=== PATIENT | female | born 1960 | race Caucasian/White ===

== ENCOUNTER 2017-06-24 14:10 | Emergency (ER) | payer OTHER ==
[~2017-06-24] VITALS: Ht 165.1 cm; Wt 100.0 kg
[2017-06-24 14:32] VITALS: BP 125/83; PULSE 59; RESP 15; O2SAT 97
--- NOTE | 2017-06-24 14:50 | ED.REPORT ---
HPI-Trauma Multiple Date of Service Jun 24, 2017 ED Provider: Velasquez Reagan MD Pt is a 56 year old female on Warfarin with a history of PE, hypertension and fibromyalgia presents to the ED due to multiple falls. The pt was running down a gravel road at 09:30 today when she tripped and fell three times. She hit her head twice but did not lose consciousness. In the ED, the pt is complaining of head and neck pain, extremity pain and multiple abrasions. She took tramadol and gabapentin without relief of her pain. The pt was able to walk following the falls. Her tetanus is up to date. Nursing Notes Stated Complaint: MULTIPLE GROUND LEVEL FALLS Chief Complaint: Multiple Trauma/Fall Nursing Notes Reviewed: Yes Allergies: Coded Allergies: acetaminophen (Verified Allergy, Mild, irritability, 06/24/17) cephalexin (Verified Allergy, Unknown, 06/24/17) oxycodone (Verified Allergy, Unknown, 06/24/17) General Time Seen by Provider: 14:49 Chief Complaint Other (Falls) Hx Obtained From: Patient Arrived By: Walk-in Onset Occurred: 5 - 8 hours ago Symptom Duration: Since onset Recent Healthcare: Recent doctor visit Similar Sx Previous: No Past Medical History Past Medical History Fibromyalgia Pulmonary embolism 2013 Reports: Hypertension Reports: Obesity Past Surgical History exp. lap Reports: Appendectomy, , Cholecystectomy Smoking History Unknown if Ever Smoker Social History Alcohol Use: "Social" Drug Use: Denies drug use Other Social History: Good social support, Ambulatory Status Independent Review of Systems Review of Systems Note: multiple abrasions Respiratory: Denies: Non-productive cough, Shortness of breath Cardiovascular: Denies: Chest pain GI: Denies: Abdominal pain, Nausea, Vomiting Musculoskeletal: Reports: Extremity pain, Neck pain Skin: Denies Rash Neurologic: Reports: Headache Complete sys rev & neg: except as marked. Physical Exam Initial Vital Signs Vital Signs (First) Date Time Temp Pulse Resp B/P Pulse Ox O2 Delivery O2 Flow Rate FiO2 06/24/17 14:32 36.9 59 15 125/83 97 Room Air Initial VS: Reviewed General/Constitutional: Awake, Alert answers questions appropriately Head / Eyes: Atraumatic, Normocephalic, PERRL, EOMI no scalp tenderness ecchymosis and abrasion overlying right side of the forehead and the bridge of the nose mild left maxillary tenderness no evidence of intraoral trauma Neck: Supple c-collar in place diffuse cervical tenderness without bony deformities or focal tenderness Respiratory / Chest: Atraumatic, Breath sounds NL, Breath sounds = bilat, No respiratory distress Cardiovascular: Heart rate NL, Regular rhythm, Heart sounds NL, No gallop, No murmurs, No rubs Abdomen: Atraumatic, Soft, Non-tender, No distention Back: Atraumatic, Full range of motion Neurologic: Oriented X3, Speech NL, No motor deficits, No sensory deficits ENT: Atraumatic, Airway patent, Mucous membranes moist Upper Extremity / MS: Full range of motion, Neurologic intact, Vascular intact abrasion overlying left palm, LUE otherwise atraumatic good radial pulses RUE atraumatic with good active and passive ROM Lower Extremity / Pelvis / MS: Full range of motion, Neurologic intact, Vascular intact abrasion overlying bilateral knees discomfort with bending knees, no obvious bony deformity good DP and PT pulses bilaterally Skin: Color NL, No rash, Warm, Dry Psychiatric: Affect NL, Mood NL Interpretation & Diagnostics Lab Results Interpretation Result Diagram: 06/24/17 1716 06/24/17 1716 Test 06/24/17 17:16 06/24/17 17:17 White Blood Count 8.0th/mm3 (3.8-10.1) Red Blood Count 4.65mil/mm3 (3.90-5.20) Hemoglobin 14.1g/dL (12.0-15.6) Hematocrit 40.8% (35.0-46.0) Mean Corpuscular Volume 87.7fL (81-100) Mean Corpuscular Hemoglobin 30.3pg (27.0-35.0) Mean Corpuscular Hemoglobin Concent 34.6% (32.0-37.0) Red Cell Distribution Width 14.0% (12.3-15.4) Platelet Count 221bil/L (150-400) Neutrophils (%) (Auto) 60.3% (40-74) Lymphocytes (%) (Auto) 30.5% (14-46) Monocytes (%) (Auto) 7.0% (4-12) Eosinophils (%) (Auto) 1.7% (0-5) Basophils (%) (Auto) 0.5% (0-3) Prothrombin Time 10.3sec (8.1-12.5) Prothromb Time International Ratio 0.96ratio Sodium Level 139mEq/L (134-144) Potassium Level 3.8mEq/L (3.5-5.2) Chloride Level 104mEq/L (97-108) Carbon Dioxide Level 24mmol/L (18-29) Blood Urea Nitrogen 12mg/dL (6-24) Creatinine 0.97mg/dL (0.57-1.00) Estimat Glomerular Filtration Rate 84mL/min (>59) Glucose Level 104mg/dL (60-99) Calcium Level 9.6mg/dL (8.5-10.1) Total Bilirubin 0.7mg/dL (0.0-1.2) Aspartate Amino Transf (AST/SGOT) 20U/L (0-50) Alanine Aminotransferase (ALT/SGPT) 17U/L (0-32) Alkaline Phosphatase 85U/L (25-150) Total Protein 7.1g/dL (6.4-8.4) Albumin 4.0g/dL (3.4-5.0) Hold Perez Top Tube Received (Received) X-Ray Interpretation Xray Interpretation: IMPRESSION: No visualized acute fracture or dislocation. However, if clinical concern and/or pain persist, short interval imaging followup in 7-10 days is recommended, as occult injury cannot be definitively excluded. Dictated by: Paola Mcintyre M.D. on 06/24/2017 at 15:10 Approved by: Paola Mcintyre M.D. on 06/24/2017 at 15:11 X-Ray Ordered: Knee left Interpretation / Wet Read by: Interpret - Radiologist Xray Interpretation: IMPRESSION: No visualized acute fracture or dislocation. However, if clinical concern and/or pain persist, short interval imaging followup in 7-10 days is recommended, as occult injury cannot be definitively excluded. Dictated by: Paola Mcintyre M.D. on 06/24/2017 at 15:11 Approved by: Paola Mcintyre M.D. on 06/24/2017 at 15:17 X-Ray Ordered: Knee right Interpretation / Wet Read by: Interpret - Radiologist CT Head Interpretation IMPRESSION: No acute intracranial findings. Dictated by: Paula Portillo M.D. on 06/24/2017 at 16:44 Approved by: Paula Portillo M.D. on 06/24/2017 at 16:47 Interpretation / Wet Read by: Interpret - Radiologist CT C-Spine Interpretation IMPRESSION: No acute bony injuries of the cervical and upper thoracic spine from the foramen magnum to the T4 level. Dictated by: Aung Cook M.D. on 06/24/2017 at 16:52 Approved by: Aung Cook M.D. on 06/24/2017 at 16:55 Interpretation / Wet Read by: Interpret - Radiologist Re-Eval/Medical Decision Med Decision/Clinical Course Pt is a 56 year old female on Warfarin with a history of PE, hypertension and fibromyalgia presents to the ED due to multiple falls. The pt was running down a gravel road at 09:30 today when she tripped and fell three times. She hit her head twice but did not lose consciousness. In the ED, the pt is complaining of head and neck pain, extremity pain and multiple abrasions. She took tramadol and gabapentin without relief of her pain. The pt was able to walk following the falls. Her tetanus is up to date. Here in the emergency department the patient is afebrile, hemodynamically stable and in no apparent distress with examination as above. The patient was initially treated with tramadol for her pain though reported inadequate relief, she was treated with hydromorphone thereafter with complete resolution of her symptoms. Imaging was obtained as below: CT head negative CT c-spine negative knee x-rays negative bilaterally CBC unremarkable CMP unremarkable INR 0.96 She was counseled as to her low INR. She will double her Coumadin dose tomorrow and follow up with anticoagulation clinic. In regards to her injuries at this time I see no significant traumatic injuries. Serial examinations were benign. Her cervical spine was clinically cleared and her collar was removed. She is up-to-date on her tetanus. She was provided with dressings for her multiple abrasions. At this time, I feel that she is appropriate for discharge. Prior to discharge follow-up and return precautions were reviewed in detail with the patient who verbalized understanding and agreement with the plan. The patient was discharged in stable condition. Source of Hx: Old records Re-Evaluation/Progress : Time of Eval: 18:34 Patient Status: Condition improved Re-Evaluation/Progress Note: Pt rechecked, who is comfortable. The diagnosis and plan for discharge are discussed. The pt understands and agrees with the plan. All questions are addressed at this time. Counseled Regarding: Diagnosis, Lab results, Need for follow-up, When/why to return to ED Discharge & Departure Impression: Primary Impression: Fall from ground level Additional Impressions: Abrasion, multiple sites Anticoagulated on Coumadin Disposition: Home Discharge Condition All VS Reviewed: Yes Condition: Stable Patient Instructions: Abrasion (ED), Fall Prevention (ED), Safe Use of Anticoagulants (ED) Additional Instructions: Thank you for seeking care at the emergency room. You were seen for a ground level fall. Your imaging was reassuring and did not show any injuries. Our primary goal today in the Emergency Department was to evaluate you for any life-threatening conditions. Your evaluation was reassuring. You should follow-up with your primary doctor in the next week. Also follow up with the anticoagulation clinic about your INR. Your INR in the Emergency Department is 0.96. You should return to the Emergency Department immediately if you develop worsening pain, fevers, vomiting, cough, shortness of breath, chest pain, lightheadedness, weakness or any other concerning signs or symptoms. Thank you for letting us partake in your care today. Referrals: Aysha Lynn MD (PCP) Scribe Attestation Portions of this note were transcribed by Ventura Todd. I, Dr. Reagan personally performed the history, physical exam and medical decision-making; I reviewed and confirmed the accuracy of the information in the transcribed note. copies to: Aysha Lynn MD, Beck O MD Jun 24, 2017 14:50 VENTURA TODD Jun 24, 2017 15:02
--- NOTE | 2017-06-24 16:13 | DRSVH ---
PROCEDURE: X-RAY LEFT KNEE, THREE VIEWS ([id number]) INDICATIONS: trauma TECHNIQUE: 3 views of the knee were acquired. COMPARISON: None. FINDINGS: Bones: No fractures or dislocations. No suspicious bony lesions. Soft tissues: No joint effusion. No suspicious soft tissue calcifications. IMPRESSION: No visualized acute fracture or dislocation. However, if clinical concern and/or pain pe rsist, short interval imaging followup in 7-10 days is recommended, as occult injury cannot be defini tively excluded. Dictated by: Paola Mcintyre M.D. on 06/24/2017 at 15:10 Approved by: Paola Mcintyre M.D. on 06/24/2017 at 15:11
--- NOTE | 2017-06-24 16:19 | DRSVH ---
PROCEDURE: X-RAY RIGHT KNEE, THREE VIEWS ([id number]) INDICATIONS: trauma TECHNIQUE: 3 views of the knee were acquired. COMPARISON: None. FINDINGS: Bones: No fractures or dislocations. No suspicious bony lesions. Soft tissues: No joint effusion. No suspicious soft tissue calcifications. IMPRESSION: No visualized acute fracture or dislocation. However, if clinical concern and/or pain pe rsist, short interval imaging followup in 7-10 days is recommended, as occult injury cannot be defini tively excluded. Dictated by: Paola Mcintyre M.D. on 06/24/2017 at 15:11 Approved by: Paola Mcintyre M.D. on 06/24/2017 at 15:17
--- NOTE | 2017-06-24 16:48 | DRSVH ---
PROCEDURE: CT BRAIN WITHOUT CONTRAST ([id number]) INDICATIONS: trauma TECHNIQUE: Noncontrast 4.5 mm thick angled axial sections acquired from the foramen magnum to the vertex, with c oronal reformats. COMPARISON: [facility], CT, CT BRAIN WO CON, 11/03/2016, 20:08. FINDINGS: Image quality: Excellent. CSF spaces: Basal cisterns are patent. No extra-axial fluid collections. Ventricles are normal in size and shape. Brain: No midline shift. No intracranial masses or hemorrhage. Shaw-white matter interface is norm al. Skull and face: Calvarium and visualized facial bones are intact, without suspicious lesions. Sinuses: Visualized sinuses and mastoids are clear. IMPRESSION: No acute intracranial findings. Dictated by: Paula Portillo M.D. on 06/24/2017 at 16:44 Approved by: Paula Portillo M.D. on 06/24/2017 at 16:47
--- NOTE | 2017-06-24 16:57 | DRSVH ---
PROCEDURE: CT CERVICAL SPINE WITHOUT CONTRAST ([id number]) INDICATIONS: 56 year-old female with neck pain after fall. TECHNIQUE: Noncontrast 3 mm thick sections acquired from the skull base to the T4 level. Sagittal and coronal r eformats were then constructed. For radiation dose reduction, the following was used: automated exp osure control, adjustment of mA and/or kV according to patient size. COMPARISON: None. FINDINGS: Image quality: Excellent. Bones: No fractures or dislocations. Visualized superior ribs are intact. There is lower cervical spine disc degeneration, as well as multilevel upper thoracic spine diffuse idiopathic skeletal hyper ostosis. Soft tissues: Prevertebral soft tissues are normal in thickness. No paravertebral hematomas. No ap ical pneumothoraces. IMPRESSION: No acute bony injuries of the cervical and upper thoracic spine from the foramen magnum t o the T4 level. Dictated by: Aung Cook M.D. on 06/24/2017 at 16:52 Approved by: Aung Cook M.D. on 06/24/2017 at 16:55
[2017-06-24] MEDS ORDERED: HYDROmorphone 1 mg/mL Inj IVPUSH ONE (17:00)
[2017-06-24 17:22] LABS: BASOPHILS % (AUTO) 0.5 % (0-3); EOSINOPHILS % (AUTO) 1.7 % (0-5); Mean Corpuscular Hemoglobin 30.3 pg (27.0-35.0); Mean Corpuscular Volume 87.7 fL (81-100); NEUTROPHILS % (AUTO) 60.3 % (40-74); Platelet Count 221 bil/L (150-400)
[2017-06-24 17:42] LABS: INR 0.96 ratio
[2017-06-24 18:50] VITALS: BP 132/76; PULSE 60; RESP 15; O2SAT 97
[2017-06-25] MEDS ORDERED: Sodium Chloride LOK Flush 10 mL Syringe IVFLUSH SCH (00:30)
== END 2017-06-24 18:40 | disposition home or self-care (01) ==
LOC: SED 14:10
DX: S00.81XA Abrasion of other part of head, initial encounter (principal); S00.31XA Abrasion of nose, initial encounter; S60.512A Abrasion of left hand, initial encounter; S80.211A Abrasion, right knee, initial encounter; S80.212A Abrasion, left knee, initial encounter; W01.198A Fall on same level from slipping, tripping and stumbling with subsequent striking against other object, initial encounter; Y92.014 Private driveway to single-family (private) house as the place of occurrence of the external cause; Y93.02 Activity, running; Y99.8 Other external cause status; M54.2 Cervicalgia; I10 Essential (primary) hypertension; M79.7 Fibromyalgia; E66.9 Obesity, unspecified; Z68.36 Body mass index [BMI] 36.0-36.9, adult; Z79.01 Long term (current) use of anticoagulants; Z86.711 Personal history of pulmonary embolism; Z88.6 Allergy status to analgesic agent; Z88.1 Allergy status to other antibiotic agents; Z88.5 Allergy status to narcotic agent
CPT/HCPCS: 36415; 70450; 72125; 73562; 80053; 85025; 85610; 96374; 99285; J1170